=== PATIENT | male | born 1985 | race African-American/Black ===

== ENCOUNTER 2018-04-12 19:08 | Emergency (ER) | payer SELFPAY ==
[~2018-04-12 19:08] MED LIST: ISOVUE-370 76%-LOCM 1 ML ONE
[2018-04-12 19:37] LABS: #Basophils 0.1 thou/uL (0.0-0.2); #Eosinphils 0.2 thou/uL (0.0-0.7); #Lymphocytes 2.7 thou/uL (1.20-3.40); #Monocytes 0.9 thou/uL (0.11-0.59); #Neutrophils 5.4 thou/uL (1.40-6.50); %Eosinophils 2.5 % (0.0-10.0); %Lymphocytes 29.1 % (21.0-51.0); %Neutrophils 57.4 % (42.0-75.0); Hemoglobin 15.6 g/dL (14.0-18.0); Mean Corpuscular HGB CONC 32.9 g/dL (32.0-36.0); Mean Corpuscular Hemoglobin 30.5 pg (27.0-31.0); Mean Corpuscular Volume 92.7 fL (78.0-98.0); Mean Platelet Volume 6.4 fL (7.4-10.4); Platelet Count 407 thou/uL (130-400); RBC Distribution Width 12.1 % (11.5-14.5); Red Blood Cell (RBC) Count 5.12 mill/uL (4.70-6.10); White Blood Cell (WBC) Count 9.4 thou/uL (4.8-10.8)
[2018-04-12 19:47] LABS: ALT (SGPT) 17 U/L (8-55); AST (SGOT) 19 U/L (5-34); Albumin 4.7 g/dL (3.5-5.0); Alkaline Phosphatase 89 U/L (40-150); Anion Gap 15 mmol/L (10-20); BUN (Urea Nitrogen) 16 mg/dL (8.9-20.6); Bilirubin, Total 0.2 mg/dL (0.2-1.2); CK (CPK) 313 U/L (30-200); Calc. Creatinine Clearance 0 mL/min (70-130); Calcium 9.7 mg/dL (7.8-10.44); Carbon Dioxide 23 mmol/L (22-29); Chloride 106 mmol/L (98-107); Estimated GFR-MDRD 60; Globulin 3.2 g/dL (2.4-3.5); Glucose 95 mg/dL (70-105); Potassium 3.9 mmol/L (3.5-5.1); Protein, Total 7.9 g/dL (6.0-8.3); Sodium 140 mmol/L (136-145)
--- NOTE | 2018-04-12 20:01 | CT ---
CT BRAIN WITHOUT CONTRAST: 04/12/18 HISTORY: 32-year-old male with stuttering, difficulty focusing. FINDINGS: No evidence of acute infarct, hemorrhage, midline shift or abnormal extra-axial fluid collections are seen. The ventricular size is normal and the basilar cisterns are patent. The bony calvarium is inta ct. There is mucosal disease in the paranasal sinuses. IMPRESSION: No CT evidence of acute intracranial process. Discussed over the telephone with ER physician, Dr. Brantley at 7:20 p.m. POS: [facility]
--- NOTE | 2018-04-12 20:08 | RAD ---
PORTABLE CHEST ONE VIEW: 04/12/18 at 7:57 p.m. HISTORY: Dizziness, tingling. FINDINGS: The heart size is normal. The lungs are well expanded without focal areas of consolidation, pneumotho rax or pleural effusions. IMPRESSION: No acute process. POS: [facility]
--- NOTE | 2018-04-12 20:16 | CT ---
CTA BRAIN WITH IV CONTRAST AND 3D POSTPROCESSING CTA NECK WITH IV CONTRAST AND 3D POSTPROCESSING 04/12/18 HISTORY: 32-year-old male with stuttering, difficulty focusing. FINDINGS/IMPRESSION: There is good flow in the carotid arteries and vertebrobasilar systems in the neck and brain. No susan r branch occlusion, significant stenosis or aneurysmal formation is seen. The findings are discussed over the telephone with ER physician, Dr. Brantley at 7:45 p.m. POS: [facility]
[2018-04-12 20:59] LABS: Bilirubin Negative (Negative); Blood, Urine Negative (Negative); Clarity CLEAR (Clear); Glucose, Urine (Dipstick) Negative (Negative); Leukocyte Negative (Negative); Nitrite Negative (Negative); Protein, Urine (Dipstick) Negative (Neg-Trace); Specific Gravity, Urine 1.026 (1.002-1.036); Urobilinogen 0.2 mg/dL (0.2-1.0)
[2018-04-12] MEDS ORDERED: Ketorolac Tromethamine 30 MG/ML VIAL ONE (21:58)
--- NOTE | 2018-04-12 22:44 | CT ---
CT ABDOMEN AND PELVIS WITHOUT CONTRAST: 04/12/18 HISTORY: Left lower quadrant pain, dysuria and hematuria. FINDINGS: Absence of oral and IV contrast reduces the sensitivity of exam, particularly for evaluation of solid organs and bowel). There is contrast in the collecting systems, ureters, and the urinary bladder from recent CTA from [facility] today. There are dependent changes in the lung bases. No free air or free fluid is seen in the abdomen or pe lvis. No hydroureteronephrosis is seen. Contrast is seen in the ureters and the urinary bladder. No calcified gallstones are identified. A normal appearing is seen. There is fecal material in the rectu m and colon. No contrast extravasation is seen to suggest urinary tract injury. No acute osseous abno rmality is seen. IMPRESSION: No CT evidence of urinary tract obstruction or appendicitis. POS: [facility]
== END 2018-04-13 | disposition home or self-care (01) ==
LOC: ERS 19:08
DX: K59.00 Constipation, unspecified (principal); G43.909 Migraine, unspecified, not intractable, without status migrainosus; F17.210 Nicotine dependence, cigarettes, uncomplicated
CPT/HCPCS: 36415; 36416; 70450; 70496; 70498; 71045; 74176; 80053; 81003; 82550; 83605; 84484; 85025; 85610; 85730; 87040; 87086; 87804; 93005; 94760; 96374; J1885; Q9966